=== PATIENT | female | born 1995 | race Two or more races ===

== ENCOUNTER 2023-10-06 20:50 | Outpatient (REF) | payer OTHER, SELFPAY ==
[2023-10-10 17:07] LABS: Age Gdln ACOG Testing Note (.); HPV Aptima Negative (Negative); IGP, Aptima HPV, rfx 16/18,45 Note (.)
== END 2023-10-06 20:51 | disposition home or self-care (01) ==
LOC: LAB 20:50
PROVIDERS: Visit Provider Obstetrics & Gynecology
DX: Z12.4 Encounter for screening for malignant neoplasm of cervix (principal)
CPT/HCPCS: 87624; G0145

== ENCOUNTER 2024-10-11 19:42 | Outpatient (REF) | payer OTHER, SELFPAY ==
--- OUTSIDE RECORDS SUMMARY | 2024-10-11 19:48 | XMS_ITS | CCD ---
Author Organization [facility] Care Team Providers Care Door To Door Salesman Name Role Phone CRISTINA GIBBS Referring Unavailable Unavailable Primary Care Provider Lay SANTOS, DR ESTEVEZ Admitting Unavailable TOM, DR ESTEVEZ Attending Unavailable REQUEST, DR CHEEMA LISTED Primary Care Unavailosmani SANTOS, DR ESTEVEZ Consulting Unavailable ZENAIDA SANTOS Attending Unavailable DEFISSAC HANNON Attending Unavailable ISSAC BAKER Referring Unavailable ISSAC BAKER Primary Care Unavailable ISSAC BAKER Attending Unavailable DEFISSAC HANNON Referring Unavailable DEFISSAC HANNON Primary Care Unavailable Musarance Issac BORJAS Primary Care Provider [phone] Medications Current Medications Medication Drug Class(es) Dates Sig (Normalized) Sig (Original) albuterol 0.83 mg/ml inhalation solution (1 source) beta2-Adrener gic Agonist albuterol (2.5 MG/3M L) 0.083% nebulizer solution every 6 (six) hours. Active Blood Glucose Monitoring Suppl (TRUE METRIX AIR GLUCOSE METER) w/Device KIT (1 source) Start: 9 Blood Glucose Monitoring Suppl (TRUE METRIX AIR GLUCOSE METER) w/Device KIT USE DIRECTED 4 TO 5 TIMES DAILY 0 08/28/2019 Active ethinyl estradiol 0.035 mg / norgestimate 0.25 mg oral tablet (1 source) Progestin, Estrogen Start: 4 End: 5 take 1 tablet by mouth once daily norgestimate-ethinyl estradiol (Sprintec 28) 0.25-35 MG-MCG tablet Indications: Uses control Take 1 tablet by mouth Daily 28 tablet 12 07/18/2024 07/18/2025 Active FLUoxetine 10 mg oral tablet (1 source) Serotonin Reuptake Inhibitor Start: 3 take 1 tablet by mouth once daily FLUoxetine (PROzac) 10 MG tablet Indications: Mood changes Take 1 tablet by mouth once daily for 30 days 30 tablet 07/14/2023 Active hydroCHLOROthiazide 25 mg oral tablet (1 source) Thiazide Diuretic Start: 3 take 1 tablet by mouth in the morning hydroCHLOROthiazide (HYDRODiuril) 25 MG tablet Take 25 mg by mouth in the morning. 05/24/2023 Active Insulin, Aspart, Human (1 source) Insulin Analog Insulin Aspart (VIRGINIE LOG FLEXPEN SC) Inject 6 Units into the skin 3 times daily (with meals) 0 Active insulin, isophane (1 source) insulin NPH (HUM ULIN N;NOVOLIN N) 100 UNIT/ML injection vial Inject 15 Units into the skin nightly 0 Active metFORMIN hydrochloride 500 mg oral tablet (1 source) Biguanide Start: 9 take 1 tablet by mouth twice daily metFORMIN (GLUCOPHAGE) 500 MG tablet TAKE 1 TABLET BY MOUTH TWICE DAILY 6 09/08/2019 Active Vit-Fe Fumarate-FA ( VITAMIN PO) (1 source) Start: 9 take 1 tablet by mouth once daily Vit-Fe Fumarate-FA ( VITAMIN PO) Take 1 tablet by mouth daily 0 08/26/2019 Active Problems Active Problems Problem Classification Problem Date Documented Date Episodic/Chronic Diabetes mellitus without complication (1 source) Hyperglycemia, unspecified; Translations: [Hyperglycemia, unspecified] Onset: 02-22-2024 Episodic Essential hypertension (1 source) Essential (primary) hypertension; Translations: [Essential (primary) hypertension] Onset: 02-22-2024 Chronic Immunizations and screening for infectious disease (1 source) Encounter for screening for human papillomavirus (HPV); Translations: [ENC SCREENING HUMAN PAPILLOMAVIRUS] Onset: 10-01-2022 Episodic Mood disorders (1 source) Mood disorders; Translations: [Depression, unspecified] Onset: 07-28-2018 Other nutritional; endocrine; and metabolic disorders (1 source) Body mass index (BMI) 37.0-37.9, adult; Translations: [Body mass index (BMI) 37.0-37.9, adult] Onset: 02-22-2024 Chronic Other screening for suspected conditions (not mental disorders or infectious disease) (4 sources) Encounter for screening for malignant neoplasm of cervix; Translations: [ENC SCREENING MALIG NEOPLASM CERV] Onset: 09-29-2022 Episodic Unclassified (1 source) Routine Check up Onset: 02-22-2024 Past or Other Problems Problem Classification Problem Date Documented Da te Episodic/Chronic Diabetes or abnormal glucose tolerance complicating ; childbirth; or the puerperium (1 source) Impaired glucose tolerance in ; Translations: [Abnormal maternal glucose tolerance, antepartum] Episodic Results Test Name Value Interpretation Reference Range Facil ity PAP ACOG PANEL 2: 21 to 29on 10-08-2022 . . Normal [facility] Comment on above: Performed By: #### [id number] #### [facility] [address] [place] [address] Dr. Nasreen Ventura Age Gdln ACOG Testing [facility] Comment on above: Performed By: #### [id number] #### [facility] [address] [place] [address] Dr. Nasreen Ventura DIAGNOSIS: Comment [facility] Comment on above: Result Comment: NEGATIVE FOR INTRAEPITHE LIAL LESION OR MALIGNANCY. Performed By: #### [id number] #### [facility] [address] [place] [address] Dr. Nasreen Ventura Methodology: Comment [facility] Comment on above: Result Comment: This liquid based ThinPr ep(R) pap test was screened with the use of an image guided system. Performed By: #### [id number] #### [facility] [address] [place] [address] Dr. Nasreen Ventura Note: Comment [facility] Comment on above: Result Comment: The Pap smear is a scree arabella test designed to aid in the detection of premalignant and malignant conditions of the uterine cervix. It is not a diagnostic procedure and should not be used as the sole means of detecting cervical cancer. Both false-positive and false-negative reports do occur. . Performed By: #### [id number] #### [facility] [address] [place] [address] Dr. Nasreen Ventura Performed by: Comment Normal [facility] Comment on above: Result Comment: Emma Flores Cytotechnol ogolegario (ASCP) Performed By: #### [id number] #### [facility] [address] [address] [address] Nasreen Ventura Reflex Criteria: Comment Normal [facility] Comment on above: Result Comment: The HPV DNA reflex crite uche were not met with this specimen result therefore, no HPV testing was performed. . Performed By: #### [id number] #### [facility] [address] [address] [address] Nasreen Ventura Specimen adequacy: Comment Normal [facility] Comment on above: Result Comment: Satisfactory for evaluat ion. Endocervical and/or squamous metaplastic cells (endocervical component) are present. Performed By: #### [id number] #### [facility] [address] [address] [address] Nasreen Ventura Encounters Encounter Date Encounter Type Care Provider Facility Start: 10-11-2024 End: 10-11-2024 Bamboo flowsheet Zenaida Tom DO Work Phone: [facility] Start: 10-11-2024 End: 10-11-2024 Bamboo flowsheet Zenaida Tom DO Work Phone: [facility] Start: 03-21-2024 End: 03-21-2024 ambulatory [facility] Start: 02-22-2024 End: 02-22-2024 ambulatory [facility] Start: 10-06-2023 End: 10-06-2023 ambulatory ZENAIDA SANTOS Not Available Start: 09-29-2022 End: 09-29-[address] ZENAIDA SANTOS Facility: Start: 09-26-2019 End: 09-27-2019 Patient encounter procedure CRISTINA Elodia [facility] Start: 09-26-2019 End: 09-26-2019 Subsequent hospital visit by physician Belén ASTUDILLO Diabetic ED Comment on above: Abnormal maternal gl ucose tolerance, antepartum (Primary Dx) Procedures Date Procedure Procedure Detail Performing Clinician Start: 03-21-2024 Follow-up visit Follow-up ISSAC BAKER Plan of Treatment Date Care Activity Detail Author Start: 10-11-2024 End: 10-11-2024 Patient encounter procedure 10/11/2024 9:00 AM EST Office Visit [facility] [address] [place] [address] Zenaida Santos DO [address] [place] [address] Arrived [facility] Comment on above: Arrived Start: 10-13-2019 End: 10-13-2019 Routine 10/13/2019 Routine Perinatology [facility] Start: 07-10-2019 Influenza vaccination Flu vaccine (# 1) [place], [place] Start: 2014 Cervical cancer screen Cervical canc er screen [place], [place] Start: 2008 HIV screen HIV screen [place], [place] Start: 2004 DTaP/Tdap/Td vaccine (1 - Tdap) DTaP/Tdap/Td vaccine (1 - Tdap) [place] Start: 2004 HPV vaccine (1 - Fem butch 2-dose series) HPV vaccine (1 - Female 2-dose series) [place] Start: 1994 Varicella Vaccine (1 of 2 - 2-dose childhood series) Varicella Vaccine (1 of 2 - 2-dose childhood series) [place] Payers Date Payer Category Payer Medicaid (Managed Care) [employer] [id number] 2019 Medicaid [employer] [facility] [place] [employer] [place] [employer] xxxxxxxxxxxx 2019-Present [phone] [address] [address] [place] [address] xxxxxxxxxxxx [id number] 1993 Unknown [id number] 1993 Unknown [id number] 1993 Unknown [id number] 1993 Unknown [id number] 1993 Unknown [id number] 1959 Medicaid [id number] Social History Date Type Detail Facility Start: 09-26-2019 End: 09-23-2023 Tobacco smoking status [facility] Never smoker [facility] Start: 09-26-2019 Alcohol intake Ex-drinker (finding) [place] Start: 06-12-2019 [place], [place] Start: 1995 Sex Assigned At Not on file [place] Start: 09-23-2023 Tobacco use and exposure Smokeless tobacco non-user [facility] Start: 10-06-2023 Alcoholic beverage intake Lifetime non-drinker (finding) [facility] Start: 10-06-2023 History of Social function [facility] Start: 10-06-2023 Tobacco use panel [facility] Medical Equipment Procedure Code Equipment Code Equipment Origin al Text Equipment Identifier Dates USE 1 DIRECTED [id number] Start: 08-30-2019 TRUE METRIX BLOO D GLUCOSE TEST strip [id number] Start: 09-25-2019 Summary Purpose Family History No Family History Records FoundNo Family History Records FoundNo Family History Records FoundNo Family History Records Found Advance Directives Documents on File Type Date Recorded Patient Fiscal Officer Expl anation Advance Directives and Living Will Power of Scales Inspector History of Present Illness * Belén Hong RN - 09/26/2019 3:00 PM EST Diabetes Education Progress Note Rachel Cuellarsherrell here for education about Diabetes and . Pt present with spouse Teaching provided at this session included: _X__ Definition of gestational diabetes _X_ Risk factors _X__ Effects on _ X_ Management _X__ Self-monitoring of blood sugar (FBS and 2 hrs postprandial) _X__ Blood sugar targets FBS 65-90 and <120 2 hrs postprandial) _X__ Insulin _x__ Pen __x_ Vial -- Novolog and NHP role and action times _x___Hyperglycemia _x__ Hypoglycemia and treatment Meal planning: _X_ Avoid fruit juice and sugary beverages. _X_ Aim to eat small frequent meals and snacks. (ie., 3 + 3) _X__ Eat balanced meals according to divided dinner plate sample Planned follow-up: _x_ Another appointment has been scheduled for RD visit - patient to call - plan to try to come back on same day as MFM __ Patient defers scheduling another appointment at this time __ Follow up planned for prn. _X_ Patient is to report blood glucose test results to physician as directed by prescribing physician. Resource materials provided today include: [place] [facility]: GDM meal Toolkit, Blood Glucose monitoring sheets, Articles, Benefits of Breast feeding and NDEP, Preventing Type 2 Diabetes, and Insulin Instruction Sheets. Set diabetes self management goals of SMBG- check fasting and 2 hours PP, eat 3 meals and 3 snacks/day, avoid sugary beverages. Patient and partner practiced use of vial and syringe and pen method for insulin self administration- to continuous pickling line pickler helper insulin and supplies at [facility] today. BELÉN HONG RN CDE documented in this encounter Assessments Diagnosis Abnormal maternal glucose tolerance, antepartum- Primary Additional Source Comments INFORMATION SOURCE (unrecogn ized section and content) DATE CREATED AUTHOR 01/11/2020 [facility] DATE CREATED AUTHOR AUTHOR'S ORGANIZ ATION 10/08/2022 [facility] DATE CREATED AUTHOR AUTHOR'S ORGANIZ ATION 10/07/2023 [facility] DATE CREATED AUTHOR AUTHOR'S ORGANIZ ATION 03/23/2024 [facility] Reason for Visit (unrecogniz ed section and content) Status Reason Specialty Diagnoses / Procedures Referred By Contact Referred To Contact Pending Review Specialty Services Required Diabetes Services Diagnoses Abnormal maternal glucose tolerance, antepartum Cristina Gibbs MD [address] [facility] [address] [place] [address] [facility] [address] [facility] [address] [place] [address] Care Teams (unrecognized sec tion and content) Door To Door Salesman Relationship Specialty Start Date End Date Issac Baker MD [address] [place] [address] PCP - General Family Medicine 10/06/23 FOR RECORDS PERTAINING TO PATIENTS WHO ARE OR HAVE BEEN ENROLLED IN A CHEMICAL DEPENDENCY/SUBSTANCEABUSE PROGRAM, SOME INFORMATION MAY BE OMITTED. This clinical summary was aggregated from multiple sources. Caution should be exercised in using it in the provision of clinical care. This summary normalizes information from multiple sources, and as a consequence, information in this document may materially change the coding, format and clinical context of patient data. In addition, data may be omitted in some cases. CLINICAL DECISIONS SHOULD BE BASED ON THE PRIMARY CLINICAL RECORDS. [facility]. provides no warranty or guarantee of the accuracy or completeness of information in this document.
[2024-10-18 11:09] LABS: Age Gdln ACOG Testing Note (.); HPV Aptima Negative (Negative); IGP, Aptima HPV, rfx 16/18,45 Note (.)
== END 2024-10-11 19:43 | disposition home or self-care (01) ==
LOC: LAB 19:42
PROVIDERS: Visit Provider Obstetrics & Gynecology
DX: Z01.419 Encounter for gynecological examination (general) (routine) without abnormal findings (principal)
CPT/HCPCS: 87624; 88175

== ENCOUNTER 2025-10-24 18:56 | Outpatient (REF) | payer OTHER, SELFPAY ==
--- OUTSIDE RECORDS SUMMARY | 2025-10-24 10:00 | XMS_ITS | Encounter Summary ---
Author Organization [facility] Address [address] [facility] [address] [place] [address] Care Team Providers Care Film Developer Name Role Phone Cecil Baker MD Primary Care Provider Reason for Visit * ReasonCommentsGynecologic Exam Encounter Details DateTypeDepartmentCare Team (Latest Contact Info)Cwgzgnmcvnk80/16/2025 10:00 AM ESTOffice Visit [facility] [place] [facility] [address] [place] [id number] Doug Santos DO [address] [place] [address] Well woman exam with routine gynecological exam Social History Tobacco UseTypesPacks/DayYears UsedDateSmoking Tobacco: NeverSmokeless Tobacco: Never Tobacco Cessation:Counseling Given: Not Answered Alcohol UseStandard Drinks/WeekCommentsNever0 (1 standard drink = 0.6 oz pure alcohol)CommentsNoSex and Gender InformationValueDate RecordedSex Assigned at BirthNot on fileLegal JkrDaenkm20/15/2023 11:47 PM EDTGender IdentityNot on fileSexual OrientationNot on filedocumented as of this encounter Last Filed Vital Signs Vital SignReadingTime TakenCommentsBlood Ejhysmoj818/6810/24/2025 10:17 AM EST Pulse--Temperature--Respiratory Rate--Oxygen Saturation--Inhaled Oxygen Concentration--Zslfkw152 kg (243 lb)10/24/2025 10:17 AM ESTHeight--Body Mass Index40.4411 10:08 AM ESTdocumented in this encounter Progress Notes * Simona Jackson, DIRECTOR OF STUDENT AFFAIRS - 10/24/2025 10:00 AM EST Reason for Appointment: Patient ID: Rachel Soler is a 30 y.o. female who presents for Gynecologic Exam Patient presents today for Annual Exam. MEDICATIONS Current Outpatient Medications Medication Instructions albuterol (2.5 MG/3ML) 0.083% nebulizer solution Every 6 hours hydroCHLOROthiazide (HYDRODIURIL) 25 mg, Daily metFORMIN XR (GLUCOPHAGE-XR) 500 mg, Oral, Daily with evening meal, Do not crush, chew, or split. norgestimate-ethinyl estradiol (Sprintec 28) 0.25-35 MG-MCG tablet 1 tablet, Oral, Daily ALLERGIES No Known Allergies PROBLEMS Active Ambulatory Problems Diagnosis Date Noted No Active Ambulatory Problems Resolved Ambulatory Problems Diagnosis Date Noted No Resolved Ambulatory Problems Past Medical History: Diagnosis Date Asthma (HCC) Bacterial vaginosis Depression Gestational diabetes ([facility]) Obesity Seasonal allergies HISTORY PAST MEDICAL HISTORY SOCIAL HISTORY Past Medical History: Diagnosis Date Asthma (HCC) Bacterial vaginosis Depression Gestational diabetes ([facility]) Obesity Seasonal allergies Social History Tobacco Use Smoking status: Never Smokeless tobacco: Never Substance Use Topics Alcohol use: Never Drug use: Never FAMILY HISTORY Family History Problem Relation Name Age of Onset Diabetes Maternal Grandmother Kim Hypertension Maternal Grandmother Kim Other (Respiratory Problems) Maternal Grandmother Kim Diabetes Maternal Grandfather Cecil SURGICAL HISTORY History reviewed. No pertinent surgical history. REVIEW OF SYSTEMS Review of Systems: Review of Systems Constitutional: Negative. HENT: Negative. Eyes: Negative. Respiratory: Negative. Cardiovascular: Negative. Gastrointestinal: Negative. Genitourinary: Negative. Musculoskeletal: Negative. Skin: Negative. Neurological: Negative. All other systems reviewed and are negative. Hematological: Negative. Endocrine: Negative. Allergic/Immunologic: Negative. OBJECTIVE Objective: Physical Exam Constitutional: Appearance: Normal appearance. She is well-developed. Genitourinary: Vulva normal. Breasts: Breasts are soft. Right: Normal. Left: Normal. Cardiovascular: Rate and Rhythm: Normal rate and regular rhythm. Pulmonary: Effort: Pulmonary effort is normal. Breath sounds: Normal breath sounds. Abdominal: General: Bowel sounds are normal. There is no distension. Palpations: Abdomen is soft. Tenderness: There is no abdominal tenderness. There is no guarding or rebound. Musculoskeletal: General: No swelling. Normal range of motion. Right lower leg: No edema. Left lower leg: No edema. Neurological: Mental Status: She is alert and oriented to person, place, and time. Skin: General: Skin is warm and dry. Psychiatric: Mood and Affect: Mood normal. Behavior: Behavior normal. Vitals and nursing note reviewed. Exam conducted with a travel registered nurse icu present. Vitals: Estimated body mass index is 40.44 kg/m?? as calculated from the following: Height as of 10/06/23: 5' 5 . Weight as of this encounter: 243 lb. BP: 110/68 No LMP recorded. ASSESSMENT & PLAN ICD-10-CM 1. Well woman exam with routine gynecological exam Z01.419 Pap Smear HPV DNA probe, amplified Orders Placed This Encounter Procedures HPV DNA probe, amplified Annual Wellness Exam: Patient presents today for routine annual exam. Patient states she has no current complaints. Patients vitals were reviewed and within normal limits. Growth and development is noted to be appropriate for age. Menstrual history is noted to be regular with no concerns reported. No mental health concerns was expressed. Pap Smear: Speculum was inserted into the vagina and pap was obtained without difficulty. HPV testing was performed per age guideline. Patient was advised that pap results could take anywhere from 7 to 10 days to receive and our office will reach out to the patient with those once we have them. Patient can also view results via [employer]. I reinforced importance of condom use for STI prevention. Patient declined cultures to be performed with today's visit. Breast Exam: Upon examination, clinical breast exam was noted to be normal. Patient was counseled on breast self-awareness, including the importance of knowing what is normal for her own breasts and promptly reporting any changes such as new lumps, skin dimpling, nipple discharge, or pain. Screening mammogram recommended annually beginning at age 40 or earlier if risk factors are present. Discussed signs and symptoms of breast cancer and when to seek medical attention. Answered all patient questions. Contraceptive Counseling (if applicable): Patient is currently using oral contraception as a form of contraceptive. Follow Up: Patient is to return to our office in one year for annual exam unless needed otherwise. Documented by Simona Jackson LPN on behalf of: Doug Santos DO documented in this encounter Plan of Treatment DateTypeDepartmentCare Team (Latest Contact Info)Ropmkzdpsnz38/21/2026 10:00 AM ESTProcedure Visit [facility] [address] [place] [address] Doug Santos DO [address] [place] [address] NameTypePriorityAssociated DiagnosesOrder SchedulePap SmearPathology and CytologyRoutine Well woman exam with routine gynecological exam Ordered: 10/24/2025HPV DNA probe, amplifiedMicrobiologyRoutine Well woman exam with routine gynecological exam Ordered: 10/24/2025documented as of this encounter Visit Diagnoses Diagnosis Well woman exam with routine gynecological exam Routine gynecological examination documented in this encounter Care Teams Team MemberRelationshipSpecialtyStart DateEnd Date Cecil Baker MD [address] [place] [address] PCP - GeneralFamily Zchwckpm48/28/23documented as of this encounter
--- OUTSIDE RECORDS SUMMARY | 2025-10-24 19:00 | XMS_ITS | Clinical Summary ---
Author Organization [facility] Address [address], [address] [place] [address] Care Team Providers Care Epic Willow Specialist Name Role Phone Unavailable Primary Care Provider Unavailabl e Allergies No known active allergies Medications MedicationSigDispense QuantityRefillsLast FilledStart DateEnd DateStatus Blood Glucose Monitoring Suppl (TRUE METRIX AIR GLUCOSE METER) w/Device KIT USE DIRECTED 4 TO 5 TIMES [id number] TRUE METRIX BLOOD GLUCOSE TEST strip 09/25/2019Active RELION ULTRA THIN LANCETS 30G MISC USE 1 OVTNRWGU084/22/2019Active Vit-Fe Fumarate-FA ( VITAMIN PO) Take 1 tablet by mouth daily08/26/2019Active insulin NPH (HUMULIN N;NOVOLIN N) 100 UNIT/ML injection vial Inject 36 Units into the skin unrdpbs3110/11/2019Active Insulin Lispro (ADMELOG SC) Inject 20 Units into the skin 12 units breakfast 12 units lunch 24 units dinnerActive Social History Tobacco UseTypesPacks/DayYears UsedDateSmoking Tobacco: NeverSmokeless Tobacco: Never Tobacco Cessation:Counseling Given: No Alcohol UseStandard Drinks/WeekCommentsNot Currently0 (1 standard drink = 0.6 oz pure alcohol)CommentsNoSex and Gender InformationValueDate RecordedSex Assigned at BirthNot on fileLegal FphSgrtny09/11/2019 2:12 PM ESTGender Identity Not on fileSexual OrientationNot on file Last Filed Vital Signs Vital SignReadingTime TakenCommentsBlood Zytlukua369/7203 10:00 AM EST Orfut6762 10:00 AM VTQNatorhqdiav55.9 ??C (98.4 ??F)01/11/2020 10:00 AM ESTRespiratory Shny077201/11/2020 10:00 AM ESTOxygen Saturation--Inhaled Oxygen Concentration--Yazlgi255.8 kg (262 lb)01/11/2020 10:00 AM RYDQlrxme442.1 cm (5' 5 )01/11/2020 10:00 AM ESTBody Mass Index43.6001/11/2020 10:00 AM EST Plan of Treatment Not on file Insurance
--- OUTSIDE RECORDS SUMMARY | 2025-10-24 19:00 | XMS_ITS | Patient Health Record ---
Author Organization [facility] vices Address [address] [place], [place] [id number] Care Team Providers Care Steel Pickler Name Role Phone Yaneth Rubio Unavailable [phone] Allergies No Known Allergies Reason For Referral No Information Medications Medication SIG (Take, Route, Frequency, Duration) Notes Start Date End Date Status FLUoxetine HCl 10 MG Tablet TAKE 1 TABLE T BY MOUTH ONCE DAILY FOR 30 DAYS Oral; Duration: 30 Days ActiveSprintec 28 0.25-35 MG-MCG TabletOral; Duration: 28 DaysActiveAmoxicillin 500 MG Capsule1 capsule Orally Three times a day; Duration: 7 days02/16/2023 Not-Taking/PRNPhentermine HCl 37.5 MG TabletTAKE 1 TABLET BY MOUTH ONCE DAILY Oral; Duration: 30 DaysActive Social History Sex Assigned At : Social History Observation Description Sex Assigned At Female Plan Of Treatment No Information Insurance Providers Payer Name Payer Address Payer Phone Subscriber Number Group Number Insured Name Patient Relationship to Insured Coverage Start Date Coverage End Date Homar Parsons [facility] [address] [place] [address] [id number] Hannah Soler - patient is the [id number] 2022Medicaid CFC after [place] [address] [place], [place] [id number], CaroleSelf - patient is the [id number] 2022
--- OUTSIDE RECORDS SUMMARY | 2025-10-24 19:00 | XMS_ITS | Clinical Summary ---
Author Organization [facility] Address [address] [place] [address] Care Team Providers Care Superintendent Geophysical Laboratory Name Role Phone Cecil Baker MD Primary Care Provider Allergies No known active allergies Medications MedicationSigDispense QuantityRefillsLast FilledStart DateEnd DateStatus albuterol (2.5 MG/3ML) 0.083% nebulizer solution every 6 (six) hours.Active hydroCHLOROthiazide (HYDRODiuril) 25 MG tablet Take 25 mg by mouth in the morning.05/24/2023ctive metFORMIN XR (Glucophage-XR) 500 MG 24 hr tablet Indications:Weight gainTake 1 tablet (500 mg) by mouth in the evening. Take with meals Do not crush, chew, or split. 30 tablet ctive norgestimate-ethinyl estradiol (Sprintec 28) 0.25-35 MG-MCG tablet Indications:Uses controlTake 1 tablet by mouth Daily 28 tablet 5007/31/2026ctive Encounters DateTypeDepartmentCare QribLqwpwpujwhy86/16/2025 10:00 AM ESTOffice Visit [facility] [address] [facility] [place] [address] Doug Santos, DO Well woman exam with routine gynecological exam10/24/2025amboo flowsheet [facility] [address] [facility] [place] [address] Doug Santos, 10/17/20252576Ioxsja56/22/2025Telephone [facility] [address] [place] [address] Doug Santos DO from Last 3 Months Family History Medical HistoryRelationNameCommentsDiabetesMaternal GrandfatherDavidDiabetes Maternal GrandmotherBonnieHypertensionMaternal GrandmotherBonnieRespiratory ProblemsMaternal GrandmotherBonnieRelationNameStatusCommentsFatherAliveMaternal GrandfatherDavidMaternal GrandmotherBonnieMotherAlivePaternal GrandmotherAlive SiblingAlive Social History Tobacco UseTypesPacks/DayYears UsedDateSmoking Tobacco: NeverSmokeless Tobacco: Never Tobacco Cessation:Counseling Given: Not Answered Alcohol UseStandard Drinks/WeekCommentsNever0 (1 standard drink = 0.6 oz pure alcohol)CommentsNoSex and Gender InformationValueDate RecordedSex Assigned at BirthNot on fileLegal FgwPnxgsq86/15/2023 11:47 PM EDTGender IdentityNot on fileSexual OrientationNot on file Last Filed Vital Signs Vital SignReadingTime TakenCommentsBlood Evwwbygs815/6810/24/2025 10:17 AM EST Pulse--Temperature--Respiratory Rate--Oxygen Saturation--Inhaled Oxygen Concentration--Weklsa315 kg (243 lb)10/24/2025 10:17 AM YPFNmspmc170.1 cm (5' 5 )10/06/2023 10:08 AM ESTBody Mass Index40.44112/06/2022 10:08 AM EST Plan of Treatment DateTypeDepartmentCare Team (Latest Contact Info)Hzsrlvqstjh83/21/2026 10:00 AM ESTProcedure Visit [facility] [address] [facility] [place] [address] Doug Santos DO [address] [facility] [address] [place], [place] [id number] Insurance * Guarantor: Marlena Soler TypeRelation to PatientDate of BirthPhone Billing AddressPersonal/NtajhzFrlf1995 [address] [address] Care Teams Team MemberRelationshipSpecialtyStart DateEnd Date Cecil Baker MD [address] [place] [address] PCP - GeneralFamily Zdfhfbun76/28/23
--- OUTSIDE RECORDS SUMMARY | 2025-10-24 19:00 | XMS_ITS | Encounter Summary ---
Author Organization [facility] Address [address] [place] [address] Care Team Providers Care Data Processing Operator Name Role Phone Cecil Baker MD Primary Care Provider [phone] Encounter Details DateTypeDepartmentCare Team (Latest Contact Info)Lnlfiwuktou69/09/2025Travel Social History Tobacco UseTypesPacks/DayYears UsedDateSmoking Tobacco: NeverSmokeless Tobacco: NeverAlcohol UseStandard Drinks/WeekCommentsNever0 (1 standard drink = 0.6 oz pure alcohol)CommentsNoSex and Gender InformationValueDate RecordedSex Assigned at BirthNot on fileLegal JqkYkfhte35/15/2023 11:47 PM EDTGender IdentityNot on fileSexual OrientationNot on filedocumented as of this encounter Plan of Treatment DateTypeDepartmentCare Team (Latest Contact Info)Swdxcqqsnhd09/21/2026 10:00 AM ESTProcedure Visit [facility]BGYVal[facility] [address] [facility] [place] [phone] Doug Santos DO [address] [facility] [place] [address] documented as of this encounter Visit Diagnoses Not on filedocumented in this encounter Care Teams Team MemberRelationshipSpecialtyStart DateEnd Date Cecil Baker MD [address] [place], [place] [phone] PCP - GeneralFamily Hjgvdnng70/28/23documented as of this encounter
--- OUTSIDE RECORDS SUMMARY | 2025-10-24 19:00 | XMS_ITS | Clinical Summary ---
Author Organization [facility] Address [id number] [address] [place] [address] Care Team Providers Care Liaison Officer Name Role Phone Emiliano Orellana MD Primary Care Provider [phone] Allergies Active AllergyReactionsCriticalityNoted DateCommentsNo Known Drug Allergies 10/05/2017 Medications MedicationSigDispense QuantityRefillsLast FilledStart DateEnd DateStatus NORGESTIMATE-ETHINYL ESTRADIOL (SPRINTEC, 28, ORAL) Take by mouth.Active metFORMIN XR (GLUCOPHAGE XR) 500 mg 24 hr tablet Take 1 tablet (500 mg total) by mouth daily with breakfast.Active chlorpheniramine (CHLOR-TRIMETON) 4 mg tablet Take 1 tablet (4 mg total) by mouth in the morning.Active hydroCHLOROthiazide (HYDRODIURIL) 25 mg tablet Take 1 tablet (25 mg total) by mouth daily. 90 tablet 5Active FLUoxetine (PROzac) 40 mg capsule Indications:Moderate episode of recurrent major depressive disorder (CMS-HCC) Take 1 capsule by mouth in the morning 30 capsule 5Active FLUoxetine (PROzac) 40 mg capsule Indications:Moderate episode of recurrent major depressive disorder (CMS-HCC) Take 1 capsule by mouth in the morning 30 capsule Discontinued Active Problems ProblemNoted DateDiagnosed BvtwJvpthlwwth63/19/2018 Encounters DateTypeDepartmentCare FottIuhkektivwi80/18/2025[facility] [address] [place] [phone] Emiliano Orellana MD Moderate episode of recurrent major depressive disorder ([facility])08/22/2025 Refill [facility] [address] [place] [phone] Emiliano Orellana MD Moderate episode of recurrent major depressive disorder ([facility])07/31/2025 Refill [facility] [address] [place] [address] Yadira Beth CMA from Last 3 Months Immunizations ImmunizationAdministration DatesNext DueDTaP, Sdvitwjyslr06/19/1999,04/20/1995, 05/22/1994,1993,1993HPV Ojnnguqzcodi92/24/2010,12/26/2009,10/01/2009 Hep B, Adolescent or Azanorteq85/14/1994,1993,1993HiB04/20/1995, 05/22/1994,1993,1993MMR06/27/1999,04/20/1995Meningococcal MCV4P 10/01/2009OPV06/27/1999,05/22/1994,1993,1993Tdap04/01/2010Varicella 12/26/2009,06/27/1999 Family History Medical HistoryRelationNameCommentsDiabetesMaternal GrandfatherHeart failure Maternal GrandmotherHypertensionMaternal GrandmotherRelationNameStatusComments Maternal GrandfatherMaternal Grandmother Social History Tobacco UseTypesPacks/DayYears UsedDateSmoking Tobacco: NeverSmokeless Tobacco: Never Tobacco Cessation:Counseling Given: Not Answered Alcohol UseStandard Drinks/WeekCommentsYes2 (1 standard drink = 0.6 oz pure alcohol)AUDIT-CAnswerDate RecordedFrequency of Alcohol ConsumptionMonthly or less07/28/2018Average Number of Drinks1 or Frequency of Binge JymsypndCcjtj06/19/2018Overall Financial Resource Strain (CARDIA)AnswerDate RecordedHow hard is it for you to pay for the very basics like food, housing, medical care, and heating?Not hard at all03/17/2024HQ-2AnswerDate RecordedTotal Xuiof831PRAPARE - TransportationAnswerDate RecordedIn the past 12 months, has lack of transportation kept you from medical appointments or from getting medications?No03/17/2024In the past 12 months, has lack of transportation kept you from meetings, work, or from getting things needed for daily living?No03/17/2024Housing InstabilityAnswerDate RecordedAre you worried or concerned that in the next two months you may not have stable housing that you own, rent or stay in as a part of a household?No4ChildcareAnswer Date WwzglaanYwadrcjzjBcqcrrt78/12/2019EmploymentAnswerDate RecordedEmployment Olyambh8104/20/2019Hunger ScreeningAnswerDate RecordedWithin the past 12 months we worried whether our food would run out before we got money to buy more.Never True05/29/2025Within the past 12 months the food we bought just didn't last and we didn't have money to get more.Never True05/29/2025Purpose - LifeAnswerDate RecordedPurpose and direction in rcdzTqhwluj30/11/2021CommentsNoSex and Gender InformationValueDate RecordedSex Assigned at AydnoKrfamb06/18/2023 5:19 PM EDTLegal NuxAefdlh62/06/2015 11:47 AM EDTGender MqxwtbjoAzqopj44/18/2023 5:19 PM EDTSexual OrientationNot on file Last Filed Vital Signs Vital SignReadingTime TakenCommentsBlood Vezrdvpn575/65913 8:27 AM EDT Vjpqk931305/29/2025 8:27 AM OMASwmdoklysan55.7 ??C (98.1 ??F)11/30/2022 10:26 PM ESTRespiratory Dcoz454005/29/2025 8:27 AM EDTOxygen Wlkqgllvcw82%05/29/2025 8:27 AM EDTInhaled Oxygen Concentration--Ypehvq796.2 kg (243 lb)05/29/2025 8:27 AM AIBHqggse610.1 cm (5' 5 )03/21/2024 2:28 PM EDTBody Mass Index40.44003/21/2024 2:28 PM EDT Plan of Treatment DateTypeDepartmentCare Team (Latest Contact Info)Odayxdxafla71/21/2026 9:00 AM ESTOffice Visit [facility] [address] [place] [phone] Emiliano Orellana MD [address] [place] [phone] Health MaintenanceDue DateLast DoneCommentsDTaP,Tdap and Td Vaccines (7 - Td or Tdap), 06/27/1999, 04/20/1995, Additional history exists Influenza Jnajqfr9507/10/2025dult BMI Iebntyczl77Depression Wczcebclw06/Tobacco Jwgnwavve75Pap Smear /01/2024, 09/29/2022 Medical Devices Not on file Insurance * Guarantor: Ruben Soler TypeRelation to PatientDate of PhoneBilling AddressPersonal/WtjlgnZoxe1995 [address] [address] Care Teams Team MemberRelationshipSpecialtyStart DateEnd Date Emiliano Orellana MD [address] [place] [phone] PCP - GeneralInternal Medicine05/29/25
--- OUTSIDE RECORDS SUMMARY | 2025-10-24 19:00 | XMS_ITS | Encounter Summary ---
Author Organization [facility] Address [address] [facility] [place] [address] Care Team Providers Care Timing Adjuster Name Role Phone Cecil Baker MD Primary Care Provider Encounter Details DateTypeDepartmentCare Team (Latest Contact Info)Irnrtqlkidz05/16/2025amboo flowsheet [facility] [address] [place] [address] Doug Santos DO [address] [place] [address] [address] [place], [place] [address] Social History Tobacco UseTypesPacks/DayYears UsedDateSmoking Tobacco: NeverSmokeless Tobacco: NeverAlcohol UseStandard Drinks/WeekCommentsNever0 (1 standard drink = 0.6 oz pure alcohol)CommentsNoSex and Gender InformationValueDate RecordedSex Assigned at BirthNot on fileLegal NawGfqzjl06/15/2023 11:47 PM EDTGender IdentityNot on fileSexual OrientationNot on filedocumented as of this encounter Plan of Treatment DateTypeDepartmentCare Team (Latest Contact Info)Muelivvpzsr89/21/2026 10:00 AM ESTProcedure Visit [facility] [address] [facility] [place] [address] Doug Santos DO [address] [place], [place] [phone] documented as of this encounter Visit Diagnoses Not on filedocumented in this encounter Care Teams Team MemberRelationshipSpecialtyStart DateEnd Date Cecil Baker MD [address] [address] PCP - GeneralFamily Ptcqvfth99/28/23documented as of this encounter
== END 2025-10-24 18:57 | disposition home or self-care (01) ==
LOC: LAB 18:56
PROVIDERS: Visit Provider Obstetrics & Gynecology
DX: Z01.419 Encounter for gynecological examination (general) (routine) without abnormal findings (principal)
CPT/HCPCS: 88175